=== PATIENT | male | born 2000 | race Caucasian/White ===

== ENCOUNTER → 2025-05-24 | Outpatient (CLI) | payer BC | LOC: M OUTALCOH 08:14 | PROVIDERS: ATTEND Psychiatry & Neurology Psychiatry | DX: F10.20 Alcohol dependence, uncomplicated (principal); F12.10 Cannabis abuse, uncomplicated ==

== ENCOUNTER → 2025-06-18 | Outpatient (RCR) | payer BC | LOC: M OUTALCOH 05-30 09:45 | PROVIDERS: ATTEND Psychiatry & Neurology Psychiatry | DX: F10.20 Alcohol dependence, uncomplicated (principal); F12.10 Cannabis abuse, uncomplicated ==

== ENCOUNTER → 2025-07-19 | Outpatient (RCR) | payer BC | LOC: M OUTALCOH 06-21 09:52 | PROVIDERS: ATTEND Psychiatry & Neurology Psychiatry | DX: F10.20 Alcohol dependence, uncomplicated (principal); F12.10 Cannabis abuse, uncomplicated ==

== ENCOUNTER 2025-07-26 10:48 | Outpatient (RCR) | payer BC | END 2025-08-18 | LOC: M OUTALCOH 10:48 | PROVIDERS: ATTEND Psychiatry & Neurology Psychiatry | DX: F10.20 Alcohol dependence, uncomplicated (principal); F12.10 Cannabis abuse, uncomplicated ==